=== PATIENT | female | born 1985 | race Hispanic/Latino ===

== ENCOUNTER 2018-08-20 12:04 | Outpatient (CLI) | payer MEDICAID ==
[2018-08-20 13:24] VITALS: BP 120/78
== END 2018-08-20 13:57 | disposition home or self-care (01) ==
LOC: TRG 12:04
PROVIDERS: ATTEND Obstetrics & Gynecology
DX: O47.03 False labor before 37 completed weeks of gestation, third trimester (principal); Z3A.37 37 weeks gestation of pregnancy
CPT/HCPCS: 59025; 82962

== ENCOUNTER 2018-08-24 20:45 | Inpatient (IN) | payer MEDICAID ==
[2018-08-24] MEDS ORDERED: STADOL IV PRN (23:18)
[2018-08-24 23:32] LABS: Hematocrit 32.5 % (30.3-42.9); Hemoglobin 11.2 gm/dl (10.1-14.3); Mean Corpuscular HGB Conc 34 % (30-34); Mean Corpuscular Volume 89 fl (79-97); Platelet Count 317 K/mm3 (140-440); Red Blood Count 3.64 M/mm3 (3.65-5.03); Red Cell Distribution Width 15.1 % (13.2-15.2)
[2018-08-24] MEDS: LACTATED RINGERS 1,000 ML IV SCH (23:45)
[2018-08-24] MEDS ORDERED: PITOCin/NS 30 UNIT/500ML 30 UNITS/500 ML BAG IV SCH (23:45)
[2018-08-25] MEDS: LACTATED RINGERS 1,000 ML IV SCH ×2 (08:01→15:03)
[2018-08-25] MEDS ORDERED: PITOCin/NS 20 UNIT/1000ML DRIP 20,000 MILLIUNITS/1,000 ML BAG IV ONE ×2 (15:19→18:05)
[2018-08-25] MEDS ORDERED: MARCAINE 0.25% INFILTRATI ONE (15:31)
[2018-08-25] MEDS ORDERED: NARCAN 2 MG/2 ML IV PRN (15:44)
--- NOTE | 2018-08-25 15:47 | Anesthesia Consultation ---
Anesthesia Consult and Med Hx - Airway Anesthetic Teeth Evaluation: Good ROM Head & Neck: Adequate Mental/Hyoid Distance: Adequate Mallampati Class: Class II Intubation Access Assessment: Probably Good - Pulmonary Exam CTA: Yes - Cardiac Exam Cardiac Exam: RRR - Pre-Operative Health Status ASA Pre-Surgery Classification: ASA2 Proposed Anesthetic Plan: Epidural - Pulmonary Hx Smoking: Yes Hx Asthma: No Hx Respiratory Symptoms: No SOB: No COPD: Yes Home Oxygen Therapy: No Hx Pneumonia: No - Cardiovascular System Hx Hypertension: No Hx Coronary Artery Disease: No Hx Heart Attack/AMI: No Hx Angina: No Hx Percutaneous Transluminal Coronary Angioplasty (PTCA): No Hx Cardia Arrhythmia: No Hx Pacemaker: No Hx Internal Defibrillator: No Hx Valvular Heart Disease: No Hx Heart Murmur: No Hx Peripheral Vascular Disease: No - Central Nervous System Hx Neuromuscular Disorder: No Hx Seizures: No CVA: No Hx Back Pain: No Hx Psychiatric Problems: Yes (Paxil-not taking) - Gastrointestinal Hx Ulcer: No Hx Gastroesophageal Reflux Disease: No - Endocrine Hx Renal Disease: No Hx End Stage Renal Disease: No Hx Cirrhosis: No Hx Liver Disease: No Hx Insulin Dependent Diabetes: No Hx Non-Insulin Dependent Diabetes: No Hx Thyroid Disease: No Hx Hypothyroidism: No Hx Hyperthyroidism: No - Hematic Hx Anemia: No Hx Sickle Cell Disease: No - Other Systems Hx Alcohol Use: No Hx Substance Use: No Hx Cancer: No Hx Obesity: Yes
--- NOTE | 2018-08-25 15:48 | Anesthesia Day of Surgery ---
Anesthesia Day of Surgery - Day of Surgery Patient Examined: Yes Patient H&P Reviewed: Yes Patient is NPO: Yes Beta Blockers: No Cardiac Clearance: No Pulmonary Clearance: No Derrick's Test: N/A
[2018-08-25] MEDS ORDERED: fentaNYL-BUPIV 2 MCG/ML-0.125% 200 MCG/100 ML BAG EPIDURAL SCH (16:00)
[2018-08-25] MEDS ORDERED: MINERAL OIL ONE (16:22)
--- NOTE | 2018-08-25 16:49 | History and Physical Report ---
History of Present Illness Date of examination: 08/25/18 Date of admission: 08/25/18 09:54 Chief complaint: I'm here for induction History of present illness: Patient is a 33 year old who presents for induction of labor at 37+ weeks at the recommendation of [facility] due to polyhydramnios and gestational diabetes. Patient has been on glyburide since 32 weeks gestation. Past History Past Medical History: diabetes Past Surgical History: no surgical history Family/Genetic History: none Social history: single - Obstetrical History Expected Date of Delivery: 09/10/18 Actual Gestation: 37 Week(s) 5 Day(s) : 5 Para: 3 Number of Living Children: 3 Medications and Allergies Allergies Allergy/AdvReac Type Severity Reaction Status Date / Time No Known Allergies Allergy Unverified 08/20/18 13:32 Active Meds: Active Medications Butorphanol Tartrate (Stadol) 2 mg IV Q2H PRN PRN Reason: Pain , Severe (7-10) Ephedrine Sulfate (Ephedrine Sulfate) 10 mg IV Q2M PRN PRN Reason: Hypotension Lactated Ringer's (Lactated Ringers) 1,000 mls @ 125 mls/hr IV DIRECT ARMIN Last Admin: 08/25/18 15:03 Dose: 125 mls/hr Documented by: Oxytocin/Sodium Chloride (Pitocin/Ns 30 Unit/500ml) 30 units in 500 mls @ 2 mls/hr IV TITR ARMIN; Protocol Last Titration: 08/25/18 05:59 Dose: 6 mls/hr, 6 mls/hr Documented by: Fentanyl/Bupivacaine/Sodium Chlor (Fentanyl-Bupiv 2 Mcg/Ml-0.125%) 200 mcg in 100 mls @ 12 mls/hr EPIDURAL TITR ARMIN; Protocol Naloxone HCl (Narcan 2 Mg/2 Ml) 0.2 mg IV Q5M PRN PRN Reason: Respiratory sedation Review of Systems All systems: negative Constitutional: weight gain, fatigue Genitourinary: contractions - Vital Signs Vital signs: Vital Signs Pulse BP Pulse Ox 96 H 133/100 94 08/24/18 21:48 08/24/18 21:48 08/24/18 21:48 Temp Pulse Resp BP Pulse Ox 97.8 F 98 H 16 140/82 99 08/25/18 12:30 08/25/18 16:39 08/25/18 07:54 08/25/18 16:28 08/25/18 16:39 - Physical Exam Breasts: Positive: deferred Cardiovascular: Regular rate, Normal S1, Normal S2 Lungs: Positive: Clear to auscultation, Normal air movement Abdomen: Positive: normal appearance, soft, normal bowel sounds. Negative: distention, tenderness Genitourinary (Female): Positive: normal external genitalia, normal perenium Vulva: both: normal Vagina: Positive: normal moisture. Negative: discharge Cervix: Negative: lesion, discharge Uterus: Positive: normal size, normal contour Adnexa: both: normal Anus/Rectum: Positive: normal perianal skin, heme negative. Negative: rectal mass, hemorrhoids Extremities: Deep Tendon Reflex Grade: Normal +2 - Obstetrical FHR: auscultation normal Uterine Contraction Monitor Mode: External Cervical Dilatation: 1 Cervical Effacement Percentage: 50 station: -3 Uterine Contraction Pattern: Absent Uterine Contraction Intensity: Mild Results Result Diagrams: 08/24/18 23:05 Abnormal lab results 08/24/18 Range/Units 23:05 WBC 12.3 H (4.5-11.0) K/mm3 RBC 3.64 L (3.65-5.03) M/mm3 All other labs normal. Assessment and Plan IUP at 37.4 weeks for induction of labor due to poly and gdm. Admit for low dose pitocin. Patient desires natural . Anticipate .
--- NOTE | 2018-08-25 16:54 | Procedure Note ---
OB Delivery Note - Delivery Date of Delivery: 08/25/18 Surgeon: ROSALIND LEYVA Estimated blood loss: 100cc - Vaginal Delivery presentation: vertex Delivery position: OA Intrapartum events: hydramnios Delivery induction: oxytocin Delivery monitor: external FHT, external uterine Route of delivery: Delivery placenta: spontaneous Delivery cord: true knot, 3 umbilical vessels Episiotomy: none Delivery laceration: none Anesthesia: epidural Delivery comments: Viable female delivered over intact perineum with compound presentation including hand and true knot in cord. Weight 2465 grams and 5 pounds 7 ounces. Placenta delivered spontaneously and intact with 3vc. NICU called to assess due to decreased respirations with HR of 130. No lacerations. Excellent hemostasis. - Infant A at 1 minute: 6 at 5 minutes: 9 Gender: Female
--- NOTE | 2018-08-25 18:52 | Post Anesthesia Evaluation ---
- Post Anesthesia Evaluation Patient Participated: Yes Airway Patent: Yes Stable Respiratory Function: Yes Nausea/Vomiting: No Temp > 96.8F: Yes Pain Manageable: Yes Adequeate Hydration: Yes Anesthesia Complications: No Block Receding Appropriately: Yes Patient on Ventilator: No
[2018-08-25] MEDS ORDERED: NORCO 5/325 PO PRN (19:27)
[2018-08-25] MEDS ORDERED: PITOCin/NS 20 UNIT/1000ML DRIP 20 UNITS/1,000 ML BAG IV SCH (19:27)
[2018-08-25] MEDS ORDERED: BENADRYL PO PRN (19:27)
[2018-08-25] MEDS ORDERED: ZOFRAN IV PRN (19:27)
[2018-08-25] MEDS ORDERED: SODIUM CHLORIDE FLUSH SYRINGE 10 ML IV NR (19:27)
[2018-08-25] MEDS ORDERED: MILK OF MAGNESIA PO PRN (19:27)
[2018-08-25] MEDS ORDERED: PHENERGAN PR PRN (19:27)
[2018-08-25] MEDS ORDERED: DULCOLAX PR PRN (19:27)
[2018-08-25] MEDS ORDERED: PHENERGAN PO PRN (19:27)
[2018-08-25] MEDS ORDERED: LANSINOH TP PRN (19:27)
[2018-08-25] MEDS ORDERED: TUCKS PAD TP PRN (19:27)
[2018-08-25] MEDS ORDERED: TYLENOL PO PRN (19:27)
[2018-08-25] MEDS: NORMODYNE PO SCH (22:26)
[2018-08-26] MEDS: IBUPROFEN PO SCH ×5 (00:21→22:46)
[2018-08-26] MEDS ORDERED: BOOSTRIX IM ONE (06:00)
[2018-08-26 06:26] LABS: Hematocrit 30.1 % (30.3-42.9); Hemoglobin 10.2 gm/dl (10.1-14.3)
[2018-08-26] MEDS: COLACE PO SCH ×2 (10:00→22:49)
--- NOTE | 2018-08-26 10:16 | Progress Note ---
Assessment and Plan PPD 1 s/p . Doing well. Infant is under bili lights now. Plan for discharge on tomorrow. Subjective - Subjective Date of service: 08/26/18 Interval history: Patient is a 33 year old who presents for induction of labor at 37+ weeks at the recommendation of [facility] due to polyhydramnios and gestational diabetes. Patient has been on glyburide since 32 weeks gestation. Patient reports: appetite normal, voiding normally, pain well controlled, ambulating normally Molt: doing well (with bili lights) Objective - Vital Signs Latest vital signs: Vital Signs Temp Pulse Resp BP BP Pulse Ox 08/26/18 07:05 97.8 F 68 18 112/57 08/26/18 05:09 18 08/26/18 04:28 97.7 F 73 20 123/76 96 08/26/18 01:11 98.5 F 79 20 122/73 93 08/26/18 00:21 18 08/25/18 22:26 99 H 141/87 08/25/18 20:29 99.0 F 76 16 141/84 97 08/25/18 18:45 98.2 F 88 20 145/96 08/25/18 17:40 96 H 151/74 08/25/18 16:59 100 H 100 08/25/18 16:54 100 H 98 08/25/18 16:49 98 H 100 08/25/18 16:44 96 H 131/72 08/25/18 16:43 95 H 100 08/25/18 16:39 98 H 99 08/25/18 16:33 101 H 100 08/25/18 16:29 108 H 99 08/25/18 16:28 110 H 140/82 08/25/18 16:24 120 H 134/102 08/25/18 16:23 90 08/25/18 16:19 141 H 197/86 91 08/25/18 16:18 128 H 100 08/25/18 16:17 129 H 143/65 08/25/18 16:13 137 H 100 08/25/18 16:12 144 H 155/71 08/25/18 16:10 86 144/81 08/25/18 16:08 97 H 150/85 100 08/25/18 16:05 119 H 93 08/25/18 16:03 96 H 100 08/25/18 16:01 90 127/69 08/25/18 15:58 109 H 100 08/25/18 15:53 84 100 08/25/18 15:50 82 114/55 08/25/18 15:49 91 H 119/57 08/25/18 15:48 82 99 08/25/18 15:47 79 119/59 08/25/18 15:45 75 124/72 08/25/18 15:43 78 142/63 98 08/25/18 15:38 92 H 137/68 96 08/25/18 15:33 91 H 129/68 97 08/25/18 14:29 90 140/77 08/25/18 12:52 74 131/69 08/25/18 12:30 97.8 F 08/25/18 12:16 85 143/92 08/25/18 10:39 78 98 08/25/18 10:34 77 98 08/25/18 10:29 78 99 08/25/18 10:24 80 97 08/25/18 10:19 71 98 Intake and Output 08/25/18 08/26/18 08/26/18 22:59 06:59 14:59 Intake Total 879.167 200 480 Output Total 1200 Balance -320.833 200 480 Intake: IV 879.167 Lactated Ringers 1,000 ml 879.167 @ 125 mls/hr IV DIRECT ARMIN Rx#:[id number] Oral 200 480 Output: Urine 1200 Void 1200 Other: Total, Intake Amount 200 480 Total, Output Amount 800 # Voids Void 1 Estimated Blood Loss 100 - Exam Breasts: Present: deferred Cardiovascular: Present: Regular rate, Normal S1, Normal S2 Lungs: Present: Clear to auscultation, Normal air movement Abdomen: Present: normal appearance, soft, normal bowel sounds Vulva: both: normal Uterus: Present: normal, firm Extremities: Present: normal - Labs Labs: Abnormal lab results 08/26/18 Range/Units 05:37 Hct 30.1 L (30.3-42.9) %
[2018-08-26] MEDS: PRENATAL VITAMIN PO SCH (10:19)
[2018-08-26] MEDS: NORMODYNE PO SCH ×2 (10:19→22:49)
[2018-08-27] MEDS: IBUPROFEN PO SCH ×2 (09:49→15:49)
[2018-08-27] MEDS: NORMODYNE PO SCH ×2 (09:50→22:22)
[2018-08-27] MEDS: PRENATAL VITAMIN PO SCH (09:50)
[2018-08-27] MEDS ORDERED: AFLURIA QUAD 2018-2019 SYRINGE IM ONE (17:15)
--- NOTE | 2018-08-27 19:40 | Progress Note ---
Assessment and Plan PPD 2 s/p . Doing well. still requires bili lights. Mom to be discharged on this evening. Subjective - Subjective Date of service: 08/27/18 Interval history: Patient is a 33 year old who presents for induction of labor at 37+ weeks at the recommendation of [facility] due to polyhydramnios and gestational diabetes. Patient has been on glyburide since 32 weeks gestation. Patient reports: appetite normal, voiding normally, pain well controlled, ambulating normally : doing well (bili lights) Objective - Vital Signs Latest vital signs: Vital Signs Temp Pulse Resp BP BP Pulse Ox 08/27/18 16:57 97.6 F 67 18 129/75 97 08/27/18 07:53 98.0 F 70 20 121/66 96 08/27/18 00:30 98 F 67 16 126/76 97 08/26/18 22:49 69 149/84 Intake and Output 08/27/18 08/27/18 08/27/18 06:59 14:59 22:59 Intake Total 720 1080 720 Balance 720 1080 720 Intake: Oral 120 Intake, Free Water 720 960 720 Other: Total, Intake Amount 120 # Voids Void 3 1 3 - Exam Cardiovascular: Present: Regular rate, Normal S1, Normal S2 Lungs: Present: Clear to auscultation, Normal air movement Abdomen: Present: normal appearance, soft Vulva: both: normal Uterus: Present: normal, firm, fundal height below umbilicus Extremities: Present: normal Incision: Present: normal, dry, intact
--- NOTE | 2018-08-27 19:42 | Discharge Summary ---
Providers - Providers Date of Admission: 08/25/18 09:54 Date of discharge: 08/27/18 Attending physician: ROSALIND LEYVA Primary care physician: ROSALIND LEYVA Hospitalization Reason for admission: induction of labor Delivery: Other procedures: none Discharge diagnosis: IUP at term delivered baby: female Hospital course: unremarkable Condition at discharge: Good Disposition: DC-01 TO HOME OR SELFCARE Plan - Discharge Medications Prescriptions: HYDROcodone/ACETAMINOPHEN [[place] 5-325 Tablet] 1 each PO Q6H #14 tablet Ibuprofen [Motrin] 800 mg PO Q8HR PRN #40 tablet PRN Reason: Pain, Moderate (4-6) Labetalol [Normodyne TAB] 100 mg PO BID #60 tablet - Provider Discharge Summary Activity: routine, no sex for 6 weeks, no heavy lifting 4 weeks Diet: routine Instructions: routine Additional instructions: [] Smoking cessation referral if applicable(refer to patient education folder for contact #) [] Refer to [facility] Booklet Call your doctor immediately for: * Fever > 100.5 * Heavy vaginal bleeding ( >1 pad per hour) * Severe persistent headache * Shortness of breath * Reddened, hot, painful area to leg or breast * Drainage or odor from incision. * Keep incision clean and dry at all times and follow doctor's instructions regarding bathing/showering - Follow up plan Follow up: ROSALIND LEYVA MD [Primary Care Provider] - 6 Weeks Forms: [facility] Discharge Summary, Discharge Signature Page
[2018-08-27] MEDS: COLACE PO SCH (22:21)
[2018-08-27 22:24] VITALS: BP 152/80
[2018-08-28] MEDS: COLACE PO SCH (01:16)
[2018-08-28] MEDS: IBUPROFEN PO SCH (02:39)
== END 2018-08-28 02:45 | disposition home or self-care (01) | DRG 775 ==
LOC: TRG 20:45 → LD 20:46 → TRG 08-25 09:52 → LD 08-25 09:54 → OB 08-25 18:32
PROVIDERS: ADMIT Obstetrics & Gynecology; ATTEND Obstetrics & Gynecology
PROC: 10E0XZZ Delivery of Products of Conception, External Approach (ICD-10-PCS; principal; 2018-08-25)
PROC: 3E033VJ Introduction of Other Hormone into Peripheral Vein, Percutaneous Approach (ICD-10-PCS; 2018-08-25)
PROC: 3E0R3BZ Introduction of Anesthetic Agent into Spinal Canal, Percutaneous Approach (ICD-10-PCS; 2018-08-25)
PROC: 00HU33Z Insertion of Infusion Device into Spinal Canal, Percutaneous Approach (ICD-10-PCS; 2018-08-25)
DX: O40.3XX0 Polyhydramnios, third trimester, not applicable or unspecified (principal); O24.429 Gestational diabetes mellitus in childbirth, unspecified control; O69.2XX0 Labor and delivery complicated by other cord entanglement, with compression, not applicable or unspecified; O99.334 Smoking (tobacco) complicating childbirth; O99.52 Diseases of the respiratory system complicating childbirth; F17.200 Nicotine dependence, unspecified, uncomplicated; J44.9 Chronic obstructive pulmonary disease, unspecified; Z3A.37 37 weeks gestation of pregnancy; Z37.0 Single live birth
CPT/HCPCS: 36415; 85014; 85018; 85027; 86592; 86850; 86900; 86901; 90471; 90686; 90715; G0378; G0008; J2590; J7120

== ENCOUNTER 2018-09-30 06:57 | Day surgery (SDC) | payer MEDICAID ==
[2018-09-30] MEDS ORDERED: MARCAINE 0.25% INFILTRATI ONE ×3 (07:38→10:36)
[2018-09-30] MEDS ORDERED: METHYLENE BLUE ONE (07:38)
[2018-09-30] MEDS ORDERED: ZOFRAN IV PRN (07:49)
[2018-09-30] MEDS ORDERED: SUBLIMAZE IV PRN (07:49)
[2018-09-30] MEDS ORDERED: DEMEROL IV PRN (07:49)
[2018-09-30] MEDS ORDERED: NARCAN 0.4 MG/1 ML IV PRN (07:49)
[2018-09-30] MEDS ORDERED: DILAUDID IV PRN (07:49)
--- NOTE | 2018-09-30 07:49 | Anesthesia Day of Surgery ---
Anesthesia Day of Surgery - Day of Surgery Patient Examined: Yes Patient H&P Reviewed: Yes Patient is NPO: Yes Beta Blockers: No Cardiac Clearance: No Pulmonary Clearance: No
--- NOTE | 2018-09-30 07:49 | Anesthesia Consultation ---
Anesthesia Consult and Med Hx Date of service: 09/30/18 - Airway Anesthetic Teeth Evaluation: Good ROM Head & Neck: Adequate Mental/Hyoid Distance: Adequate Mallampati Class: Class II Intubation Access Assessment: Good - Pulmonary Exam CTA: Yes - Cardiac Exam Cardiac Exam: RRR - Pre-Operative Health Status ASA Pre-Surgery Classification: ASA2 Proposed Anesthetic Plan: General - Pulmonary Hx Smoking: Yes (Former) Hx Asthma: No Hx Respiratory Symptoms: No SOB: No COPD: Yes (Last used inhaler 2015) Hx Pneumonia: No - Cardiovascular System Hx Hypertension: Yes (With -resolved) Hx Coronary Artery Disease: No Hx Heart Attack/AMI: No Hx Angina: No Hx Percutaneous Transluminal Coronary Angioplasty (PTCA): No Hx Cardia Arrhythmia: No Hx Pacemaker: No Hx Internal Defibrillator: No Hx Valvular Heart Disease: No Hx Heart Murmur: No Hx Peripheral Vascular Disease: No - Central Nervous System Hx Neuromuscular Disorder: No Hx Seizures: No CVA: No Hx Back Pain: No Hx Psychiatric Problems: Yes - Gastrointestinal Hx Ulcer: No Hx Gastroesophageal Reflux Disease: No - Endocrine Hx Renal Disease: No Hx End Stage Renal Disease: No Hx Cirrhosis: No Hx Liver Disease: No Hx Insulin Dependent Diabetes: No Hx Non-Insulin Dependent Diabetes: No Hx Thyroid Disease: No Hx Hypothyroidism: Yes (Past hx) Hx Hyperthyroidism: No - Hematic Hx Anemia: No Hx Sickle Cell Disease: No - Other Systems Hx Alcohol Use: No Hx Substance Use: No Hx Cancer: No Hx Obesity: Yes
[2018-09-30] MEDS ORDERED: LACTATED RINGERS 1,000 ML IV SCH (08:00)
--- NOTE | 2018-09-30 08:39 | Short Stay Summary ---
Short Stay Documentation Date of service: 09/30/18 Narrative H&P: Patient is 6 weeks post and is here for elective sterilization. - History H&P: obtained from office Past Medical History: hypertension Past Surgical History: cholecystectomy Social history: single - Allergies and Medications Current Medications: Allergies No Known Allergies Allergy (Unverified 09/29/18 08:14) Home Medications Medication Instructions Recorded Confirmed Last Taken Type Albuterol Sulfate [Albuterol 8.5 gm IH Q4H PRN 09/29/18 09/29/18 Unknown History Sulfate Hfa] Vit-Fe Fumar-FA [ 1 tab PO QDAY 09/29/18 09/29/18 Unknown History Vitamin] Active Medications Cefazolin Sodium (Ancef/Sterile Water 2 Gm/20 Ml) 2 gm IV PREOP NR Fentanyl (Sublimaze) 50 mcg IV Q5MIN PRN PRN Reason: Pain , Severe (7-10) Stop: 09/30/18 20:00 Hydromorphone HCl (Dilaudid) 0.5 mg IV Q10MIN PRN PRN Reason: Pain , Severe (7-10) Stop: 09/30/18 20:00 Lactated Ringer's (Lactated Ringers) 1,000 mls @ 75 mls/hr IV DIRECT ARMIN Meperidine HCl (Demerol) 25 mg IV ONCE PRN PRN Reason: Shivering Stop: 09/30/18 16:00 Naloxone HCl (Narcan 0.4 Mg/1 Ml) 0.1 mg IV Q2MIN PRN PRN Reason: Res Rate </= 8 or 02 SAT < 92% Ondansetron HCl (Zofran) 4 mg IV ONCE PRN PRN Reason: Nausea And Vomiting Stop: 09/30/18 16:00 - Physical exam General appearance: no acute distress Integumentary: no rash, no growths Lungs: Clear to auscultation Breasts: deferred Heart: Regular rate, Normal S1, Normal S2 Gastrointestinal: normal, normoactive bowel sounds Female Genitourinary: deferred Rectal Exam: deferred Extremities: No edema - Brief post op/procedure progress note Date of procedure: 09/30/18 Pre-op diagnosis: Undesired fertility Post-op diagnosis: same Procedure: Laparoscopic Salpingectomy (left) Anesthesia: GETA Findings: Absent right fallopian tube. Normal uterus and ovaries Surgeon: ROSALIND LEYVA Estimated blood loss: minimal Pathology: list (left tube) Specimen disposition: to lab Condition: stable - Hospital course Hospital course: unremarkable - Disposition Condition at discharge: Good Disposition: DC- TO HOME OR SELFCARE Short Stay Discharge Plan Activity: no restrictions Weight Bearing Status: Weight Bear as Tolerated Diet: regular Wound: keep clean and dry Follow up with: ROSALIND LEYVA MD [Staff Physician] - 14 Days Prescriptions: Ibuprofen [Motrin] 800 mg PO Q8HR PRN #40 tablet PRN Reason: Pain, Moderate (4-6) HYDROcodone/APAP 5-325 [[place] 5/325] 1 each PO Q6HR PRN #20 tablet PRN Reason: Pain
[2018-09-30 08:54] LABS: Hemoglobin 12.8 gm/dl (10.1-14.3)
[2018-09-30] MEDS ORDERED: ANCEF/STERILE WATER 2 GM/20 ML IV NR (09:00)
[2018-09-30] MEDS ORDERED: DIPRIVAN 10 MG/ML IV ONE (09:46)
[2018-09-30] MEDS ORDERED: SUBLIMAZE ONE ×2 (09:46→10:23)
[2018-09-30] MEDS ORDERED: XYLOCAINE MPF 2% ONE (09:49)
[2018-09-30] MEDS ORDERED: ROBINUL ONE ×3 (09:50→10:01)
[2018-09-30] MEDS ORDERED: ZEMURON IV ONE (09:50)
[2018-09-30] MEDS ORDERED: ZOFRAN ONE (09:50)
[2018-09-30] MEDS ORDERED: BLOXIVERZ ONE (09:50)
[2018-09-30] MEDS ORDERED: PROAIR IH ONE (10:00)
[2018-09-30] MEDS ORDERED: NACL 0.9% IR ONE (10:36)
--- NOTE | 2018-09-30 11:32 | Operative Report ---
Operative Report Operative Report: Preoperative diagnosis: Undesired fertility Postoperative diagnosis: Same Procedure: Left-sided laparoscopic salpingectomy Surgeon: Yoanna Gore Anesthesia: General EBL: Minimal IV fluids: 1000 mL Urine output: 100 mL clear Findings: Normal uterus and ovaries, absent right fallopian tube Specimens: Portion of left fallopian tube Complications: None The patient was properly identified as herself. She was then taken to the OR with IV running and in place. She was given general anesthesia without difficulty. She was placed in a dorsal lithotomy position. She was then prepped and draped in normal sterile fashion. Attention was turned to the patient's vagina. Her bladder was drained of clear urine with a red rubber catheter. The speculum was then placed the patient's vagina. The cervix was visualized and grasped with tenaculum. The acorn cannula was then inserted. The surgeon's gloves were changed and attention turned to the patient's abdomen. A small incision was made in the patient's umbilicus incision a 5 mm trocar was placed. The laparoscope confirmed intra-abdominal placement. The abdomen was insufflated with CO2 gas to approximately 25 mmHg. Both fallopian tubes were identified. With direct visualization a second trocar was placed through an incision in the left lower quadrant. Both tubes were found and followed out to the fimbriated ends. The right tube appeared to be missing a large portion in the center area consistent with an ectopic and previous salpingectomy. The left tube was cauterized at the portion nearest the cornua, then cauterized across the broad ligament until the tube was completely detached. There was excellent hemostasis at the end of this portion of the procedure. Each tube was handed off for pathology. At this point the abdomen was deflated. All instruments were then removed from the abdomen. The incisions were then closed with 4-0 Monocryl. The incisions were also injected with quarter percent Marcaine. The patient tolerated the procedure well she was then awakened and taken recovery in stable condition. Sponge needle and instrument counts were correct 2.
[2018-09-30] MEDS ORDERED: NORCO 5/325 PO PRN (12:00)
[2018-09-30 12:27] VITALS: BP 145/77
--- NOTE | 2018-09-30 12:56 | Post Anesthesia Evaluation ---
- Post Anesthesia Evaluation Patient Participated: Yes Airway Patent: Yes Stable Respiratory Function: Yes Nausea/Vomiting: No Temp > 96.8F: Yes Pain Manageable: Yes Adequeate Hydration: Yes Anesthesia Complications: No
== END 2018-09-30 12:20 | disposition home or self-care (01) ==
LOC: OR 06:57
PROVIDERS: ATTEND Obstetrics & Gynecology
DX: Z30.2 Encounter for sterilization (principal); G43.909 Migraine, unspecified, not intractable, without status migrainosus; J44.9 Chronic obstructive pulmonary disease, unspecified; E03.9 Hypothyroidism, unspecified; F32.9 Major depressive disorder, single episode, unspecified; E66.9 Obesity, unspecified; Z68.36 Body mass index [BMI] 36.0-36.9, adult; Z98.890 Other specified postprocedural states; Z79.899 Other long term (current) drug therapy; Z87.891 Personal history of nicotine dependence; Z90.49 Acquired absence of other specified parts of digestive tract
CPT/HCPCS: 36415; 58670; 81025; 85014; 85018; 88302; J0690; J2405; J2704; J2710; J3010; J7120; Q9968